=== PATIENT | male | born 1970 | race Caucasian/White ===

== ENCOUNTER 2019-02-27 13:08 | Emergency (ER) | payer MEDICARE, OTHER, SELFPAY ==
[2019-02-27 13:20] VITALS: BP 103/64; PULSE 68; RESP 16; TEMP 36.6; O2SAT 98; BMI 23.6
[2019-02-27 13:39] LABS: Appearance Urine UA CLEAR; Bacteria Urine None Seen; Bilirubin Urine UA NEGATIVE (NEGATIVE); Color Urine UA YELLOW; Glucose Urine UA NEGATIVE (Negative); Ketones Urine UA NEGATIVE (NEGATIVE); Leukocyte Esterase Urine UA NEGATIVE (NEGATIVE); Nitrite Urine UA NEGATIVE (Negative); Occult Blood Urine UA NEGATIVE (Negative); Protein Urine UA NEGATIVE (Negative); RBC Urine None Seen (0-5/HPF); Urobilinogen Urine UA 0.2 E.U./dL (0.2); WBC Urine None Seen (0-5/HPF)
[2019-02-27 13:45] LABS: Culture Indicated Urine Cult Not Indicated; Urine Comments Microscopic Normal
--- NOTE | 2019-02-27 13:48 | ED_ITS ---
HPI - Male Genitourinary <OTF Murphy - Last Filed: 02/27/19 22:19> General Chief complaint: Urogenital-Male Stated complaint: chylamidia needs antibiotics x2 days Time Seen by Provider: 02/27/19 13:18 Source: patient Mode of arrival: ambulatory Limitations: no limitations History of Present Illness HPI Narrative: 49-year-old healthy male, presents emergency department today complaining of right testicle pain and slight swelling that started 2 today ago. He is concern for STDs, as he reports unprotected sexual intercourse with a woman he did not know about 2 weeks ago. He denies any penile discharge, dysuria, abdominal pain, nausea, vomiting, chest pain, shortness of breath, or fevers. He states he does not want to be tested for HIV or hepatitis as [facility] He also reports that [place] was [place] over 12 hours yesterday and was concerned that this may have also contributed to the issue. Related Data Previous Rx's Medication Instructions Recorded scopolamine base [Transderm-Scop] 1 patch TD Q72H #2 patch 03/06/17 Allergies Allergy/AdvReac Type Severity Reaction Status Date / Time No Known Drug Allergies Allergy Unverified 12/22/17 18:30 Review of Systems <OTF Murphy - Last Filed: 02/27/19 22:19> Review of Systems Narrative: REVIEW OF SYSTEMS: GENERAL: Denies fever, chills, malaise, or wt. loss. HENT: No head trauma, sore throat, or dysphagia. EYES: No loss of vision, double vision, eye pain, or irritation. CARDIOVASCULAR: No chest pain, palpitations, or orthopnea. RESPIRATORY: No shortness of breath or cough. GASTROINTESTINAL: Denies abdominal pain. GENITOURINARY: Patient reports concern for STIs and testicular pain, see HPI PE No flank pain, urinary incontinence, hesitancy, frequency, or dysuria. MUSCULOSKELETAL: No pain, weakness, or trauma. INTEGUMENTARY: No rash, lesions, or pruritus. NEURO: No numbness, tingling, memory loss, confusion, or headaches. PSYCH: No behavior or mood changes. PFSH <OTF Murphy - Last Filed: 09/08/19 22:19> Medical History No significant medical problems (Acute) Social History Smoking Status: Never smoker Social History Smoking Status: Never smoker Exam <OTF Murphy - Last Filed: 02/27/19 22:19> Initial Vital Signs Initial Vital Signs: Vital Signs Temperature 97.8 F 02/27/19 13:20 Pulse Rate 68 02/27/19 13:20 Respiratory Rate 16 02/27/19 13:20 Blood Pressure 103/64 02/27/19 13:20 Pulse Oximetry 98 02/27/19 13:20 PHYSICAL EXAMINATION: GENERAL: Well groomed, alert, and cooperative. Answers questions promptly and appropriately. Vital signs noted. HENT: Normocephalic, atraumatic. EYES: Conjunctiva pink, sclera white, no periorbital swelling. RESPIRATORY: Normal respiratory rate, trachea midline, airway patent. No stridor, nasal flaring or accessory muscle use. s. GASTROINTESTINAL: Bowel sounds normoactive. Abdomen is soft and non-tender. No organomegaly, no palpable masses. : Penis circumcised without erythema or discharge. Scrotum without masses or tenderness. No lesions, rashes, ecchymoses, or erythema. During exam patient pointed to the skin between is to testicles of the part that was the most painful. No flank tenderness. MUSCULOSKELETAL: Normal gait and coordination. Equal tone and mass bilaterally. EXTREMITIES: CMS intact, no pedal edema. SKIN: Warm, dry, soft, appropriate color for ethnicity. No lesions, rashes, or w ounds. NEURO: Alert and Oriented X 3. Good coordination. No ataxia, or sensory deficits, or cognitive issues. PSYCH: Appropriate affect and mood. <Fay Foster DO - Last Filed: 02/28/19 07:36> Initial Vital Signs Initial Vital Signs: Vital Signs Temperature 97.8 F 02/27/19 13:20 Pulse Rate 68 02/27/19 13:20 Respiratory Rate 16 02/27/19 13:20 Blood Pressure 103/64 02/27/19 13:20 Pulse Oximetry 98 02/27/19 13:20 Course <OTF Murphy - Last Filed: 02/27/19 22:19> Course Course Narrative: Patient denied further testing for HIV or hepatitis as he states he can get this at the [facility]. Orders Ordered: ED Orders 02/27/19 13:25 Urine Chlamydia Gonorrhea PCR Stat Consultations Consultation #1: Patient staffed with Dr. Foster. Vital Signs Vital signs: Vital Signs - 8 hr 02/27/19 13:20 Temperature 97.8 F Pulse Rate 68 Respiratory Rate 16 Blood Pressure 103/64 Pulse Oximetry 98 <Fay Foster DO - Last Filed: 02/28/19 07:36> Orders Ordered: ED Orders 02/27/19 13:25 Urine Chlamydia Gonorrhea PCR Stat Vital Signs Vital signs: Vital Signs - 8 hr 02/27/19 13:20 Temperature 97.8 F Pulse Rate 68 Respiratory Rate 16 Blood Pressure 103/64 Pulse Oximetry 98 MDM - Male Genitourinary <OTF Murphy - Last Filed: 02/27/19 22:19> Medical Records Attestation: I reviewed the patient's medical records. Lab Data Attestation: I reviewed the patient's lab results. Labs: Lab Results 02/27/19 02/27/19 Range/Units 12:45 13:25 Urine Color Yellow Urine Appearance Clear Urine pH 5.0 (4.5-8.0) Ur Specific [place] 1.020 (1.000-1.035) Urine Protein Negative (Negative) Urine Glucose (UA) Negative (Negative) g/dL Urine Ketones Negative (NEGATIVE) Urine Occult Blood Negative (Negative) Urine Nitrate Negative (Negative) Urine Bilirubin Negative (NEGATIVE) Urine Urobilinogen 0.2 (0.2) E.U./dL Ur Leukocyte Esterase Negative (NEGATIVE) Urine RBC None seen (0-5/HPF) Urine WBC None seen (0-5/HPF) Urine Bacteria None seen (None) Ur Culture Indicated? Cult not indicated Micro UA Comment Microscopic normal Ur Chlamydia DNA (PCR) Not detected N gonorrhoeae DNA (PCR) Not detected MDM Narrative Medical decision making narrative: Unsure exact cause of patient's symptoms. Very low concern for epididymitis due to lack of pain at this time, lack of swelling, lack of erythema, lack of tenderness. Very low concern for STIs due to negative testing. No palpation of masses to suggest variceal or hydrocele or cancer. No concern for testicular torsion due to age, lack of tenderness on palpation, lack of discoloration, and lack of trauma. Very strict return precautions given and follow-up instructions discussed. <Fay Kristin, - Last Filed: 02/28/19 07:36> Lab Data Attestation: I reviewed the patient's lab results. Labs: Lab Results 02/27/19 02/27/19 Range/Units 12:45 13:25 Urine Color Yellow Urine Appearance Clear Urine pH 5.0 (4.5-8.0) Ur Specific [place] 1.020 (1.000-1.035) Urine Protein Negative (Negative) Urine Glucose (UA) Negative (Negative) g/dL Urine Ketones Negative (NEGATIVE) Urine Occult Blood Negative (Negative) Urine Nitrate Negative (Negative) Urine Bilirubin Negative (NEGATIVE) Urine Urobilinogen 0.2 (0.2) E.U./dL Ur Leukocyte Esterase Negative (NEGATIVE) Urine RBC None seen (0-5/HPF) Urine WBC None seen (0-5/HPF) Urine Bacteria None seen (None) Ur Culture Indicated? Cult not indicated Micro UA Comment Microscopic normal Ur Chlamydia DNA (PCR) Not detected N gonorrhoeae DNA (PCR) Not detected ECG Data Attestation: I personally reviewed and interpreted this ECG as follows: Prior ECG tracings: available for review Interpretation: 87 p.r. interval 1 60 q.8 hours [address] changes no T- wave inversions no sign of ischemia similar to previous EKG Discharge Plan Departure Patient Disposition: Home Clinical Impression: Pain in right testicle, Potential exposure to STD Discharge Date/Time: 02/27/19 15:45 Activity Restrictions/Additional Instructions: Thank you for entrusting me with your care today. As discussed, your test was negative for any infection. Please follow up with her primary care provider in the next week for re-evaluation. Return emergency department if he develops any worsening symptoms, chest pain, shortness of breath, syncope, high fevers. Prescriptions: No Action scopolamine base [Transderm-Scop] 1.5 MG patch 3 day 1 patch TD Q72H Qty: 2 RF: 0
[2019-02-27 15:09] LABS: Urine N gonorrhoeae NOT DETECTED
[2019-02-27 15:10] LABS: Urine Chlamydia NOT DETECTED
== END 2019-02-27 15:45 | disposition home or self-care (01) ==
PROVIDERS: Emergency Provider Nurse Practitioner
DX: N50.811 Right testicular pain (principal); Z20.2 Contact with and (suspected) exposure to infections with a predominantly sexual mode of transmission
CPT/HCPCS: 81001; 87491; 87591; 99282

== ENCOUNTER 2020-09-30 15:44 | Emergency (ER) | payer MEDICARE, OTHER, SELFPAY ==
[2020-09-30 16:07] VITALS: BP 131/82; PULSE 73; RESP 18; TEMP 36.5; O2SAT 98; BMI 25.8
--- NOTE | 2020-09-30 16:42 | ED_ITS ---
HPI - Wound/Laceration General Chief Complaint: Wound/Laceration Stated Complaint: left inner thight cut with skillsaw Time Seen by Provider: 09/30/20 15:54 Source: patient Mode of arrival: Family Vehicle Limitations: no limitations History of Present Illness HPI narrative: Patient complains of skill saw injury to the left thigh. Tetanus up-to-date. Denies any numbness tingling or weakness to the leg or foot. P atient is ambulatory. Bleeding controlled. Has a 5 cm laceration to the mid medial thigh. Related Data Previous Rx's Medication Instructions Recorded scopolamine base [Transderm-Scop] 1 patch TD Q72H #2 patch 03/06/17 cephalexin 500 mg PO QID #12 cap 09/30/20 Allergies Allergy/AdvReac Type Severity Reaction Status Date / Time No Known Drug Allergies Allergy Verified 09/30/20 16:05 Review of Systems Review of Systems Narrative: GENERAL: Denies chills, fatigue, malaise, fever, sweats. HEENT: Denies sinus pain, ear pain, sore throat RESPIRATORY: Denies dyspnea, cough CARDIOVASCULAR: Denies chest pain, palpitations GASTROINTESTINAL: Denies nausea, vomiting, abdominal pain : Denies dysuria, frequency, hematuria MUSCULOSKELETAL: denies muscle or bony pain SKIN: Denies rash, skin lesions, complains of laceration NEUROLOGIC: Denies weakness, numbness ROS Unobtainable: All systems reviewed & are unremarkable except as noted in HPI and below Patient History Medical History No significant medical problems Social History Smoking Status: Never smoker Smoking Status: Never smoker alcohol intake frequency: a few times a month Substance Use Type: does not use Exam Narrative Exam Narrative: GENERAL: in no distress, not toxic not dyspneic HEAD: Normocephalic. EXTREMITIES: No gross deformities. Examination left thigh. There is a 5 cm laceration/linear at the mid medial thigh. Based visualized. Subcutaneous/fat seen. No muscle or tendon injury seen no bone injury seen. No foreign body seen. Bloodless field. Foot warm soft and pink with strong pedal pulse with light touch intact to foot and toes. Able to fully flex and extend at the knee without any difficulty. As well as at the hip. NEURO: AOx4. SKIN: Warm and dry PSYCH: Not anxious, is cooperative Initial Vital Signs Initial Vital Signs: Vital Signs Temperature 97.7 F 09/30/20 16:07 Pulse Rate 73 09/30/20 16:07 Respiratory Rate 18 09/30/20 16:07 Blood Pressure 131/82 09/30/20 16:07 Pulse Oximetry 98 09/30/20 16:07 Procedures Laceration Repair Laceration 1: Site: lower extremity Side (If applicable): left Size (cm): 5 Description: linear Depth: simple, single layer Local Anesthetic: lidocaine 1% and with epi Amount of anesthesia used (mL): 6 Pre-repair: wound explored, irrigated extensively and deep structures intact Skin layer closed with: nylon Size (cm): 3-0 Number of sutures: 10 Course Course Course Narrative: No new issues during course of stay Orders Ordered: Discontinued Medications Bacitracin (Bacitracin Oint 0.9 Gm Pckt) 1 applic TOP NOW ONE Stop: 09/30/20 16:46 Last Admin: 09/30/20 16:50 Dose: Not Given Documented by: JASON Cephalexin HCl (Cephalexin 250 Mg Capsule) 500 mg PO NOW ONE Stop: 09/30/20 16:00 Last Admin: 09/30/20 16:43 Dose: 500 mg Documented by: JASON Neomycin/Polymyxin/Bacitracin (Neomycin/Polymyxin/Bacitra Ud Oint) 0.9 each TOP NOW ONE Stop: 09/30/20 16:49 Last Admin: 09/30/20 16:51 Dose: 0.9 each Documented by: JASON Reevaluation(s) Reevaluation #1: No bleeding at time of discharge. No neurovascular complaints. No deficits. Patient agrees with treatment plan and discharged home Vital Signs Vital signs: Vital Signs - 8 hr 09/30/20 16:07 Temperature 97.7 F Pulse Rate 73 Respiratory Rate 18 Blood Pressure 131/82 Pulse Oximetry 98 MDM - Wound/Laceration Differential Diagnosis Differential diagnosis: Likely laceration MDM Narrative Medical decision making narrative: Appropriate for discharge home. No labs or imaging indicated. Base of laceration visualized. No concern for bony injury at this time. No muscle injury or tendon injury seen. Neurovascularly intact. Discharge Plan Departure Patient Disposition: Home Clinical Impression: Laceration of left thigh without complication Qualifiers: Encounter type: initial encounter Qualified Code(s): S71.112A - Laceration without foreign body, left thigh, initial encounter Instructions: How to Care for a Laceration After Repair, DI for Laceration Repair Activity Restrictions/Additional Instructions: Change dressing twice a day with warm soap and water and then apply thin layer of topical antibiotic. May shower but no submersion underwater of the wound. Ten stitches to be removed in 10 days. Return if worsening questions or concerns. May see family doctor or urgent care or return here for removal stitches. Prescriptions: New cephalexin 500 mg capsule 500 mg PO QID Qty: 12 RF: 0 No Action scopolamine base [Transderm-Scop] 1.5 MG patch 3 day 1 patch TD Q72H Qty: 2 RF: 0
[2020-09-30] MEDS: cephALEXin 250 MG CAPSULE 500 MG PO (16:43)
[2020-09-30] MEDS: NEOMYCIN/POLYMYXIN/BACITRA UD OINT 0.9 EACH TOP (16:51)
== END 2020-09-30 17:03 | disposition home or self-care (01) ==
PROVIDERS: Emergency Provider Emergency Medicine
DX: S71.112A Laceration without foreign body, left thigh, initial encounter (principal); W29.3XXA Contact with powered garden and outdoor hand tools and machinery, initial encounter
CPT/HCPCS: 12002; 99283

== ENCOUNTER 2025-01-12 15:15 | Emergency (ER) | payer MEDICARE, OTHER, SELFPAY ==
[2025-01-12 15:22] VITALS: BP 108/71; PULSE 68; RESP 16; TEMP 37.1; O2SAT 98; BMI 25.1
--- NOTE | 2025-01-12 16:22 | ED.NAVMDI ---
HPI - Nausea/Vomiting/Diarrhea <Nasrin Cisneros PA-C - Last Filed: 01/12/25 19:35> General Chief complaint: Nausea/Vomiting/Diarrhea Stated complaint: thinks had laxatives in coffee Time Seen by Provider: 01/12/25 15:54 Source: patient Mode of arrival: Ambulatory History of Present Illness HPI Narrative: Mr. Vance is a pleasant 54-year-old male with no reported past medical history who presents to the emergency department for diarrhea since 10:00 a.m. yesterday. Patient states that he was at a neighbor's house, helping her. She gave him coffee and was quite insistent about him drinking the coffee. Ever since having this coffee he has had persistent watery/brown diarrhea and he is concerned that she might have given him a laxative. He went to the walk-in clinic but was sent to the ER for labs and fluids. Patient denies any abdominal pain, fevers, chills, nausea, vomiting, prior abdominal surgeries, dysuria, hematuria. He is still producing urine. His stomach is grumbling extensively but he has not having any pain. Related Data Allergies Allergy/AdvReac Type Severity Reaction Status Date / Time No Known Drug Allergies Allergy Verified 01/12/25 14:43 Review of Systems <Nasrin Cisneros PA-C - Last Filed: 01/12/25 19:35> Review of Systems ROS Unobtainable: All systems reviewed & are unremarkable except as noted in HPI and below Patient History <Nasrin Cisneros PA-C - Last Filed: 01/12/25 19:35> Medical History (Updated 01/12/25 @ 18:54 by Nasrin Cisneros PA-C) No significant medical problems Social History Smoking Status: Former smoker Smoking Status: Former smoker alcohol intake frequency: a few times a month Exam <Nasrin Cisneros PA-C - Last Filed: 01/12/25 19:35> Narrative Exam Narrative: GENERAL: 54 year old patient appears stated age. Well-developed patient, in no acute distress. HEAD: Atraumatic. Normocephalic. EYES: No scleral icterus. No injection or drainage. NECK: Trachea midline. Cervical ROM intact. CARDIOVASCULAR: Regular rate and rhythm. RESPIRATORY: ?Nonlabored respirations. ?Speaking in clear, full sentences. ?Clear to auscultation. Breath sounds equal bilaterally. No wheezes, rales, or rhonchi. ? GASTROINTESTINAL: Abdomen soft, non-tender, nondistended. Hyperactive BS. EXTREMITIES: No edema or joint tenderness. BACK: No CVA tenderness. NEURO: AOx3. ?Clear speech. ?Moves all 4 extremities appropriately. SKIN: No rash or erythema of visible areas Initial Vital Signs Initial Vital Signs: Vital Signs Temperature 98.7 F 01/12/25 15:22 Pulse Rate 68 01/12/25 15:22 Respiratory Rate 16 01/12/25 15:22 Blood Pressure 108/71 01/12/25 15:22 Pulse Oximetry 98 01/12/25 15:22 Oxygen Delivery Method Room Air 01/12/25 15:22 <Miriam Miranda MD - Last Filed: 01/14/25 19:14> Initial Vital Signs Initial Vital Signs: Vital Signs Temperature 98.7 F 01/12/25 15:22 Pulse Rate 68 01/12/25 15:22 Respiratory Rate 16 01/12/25 15:22 Blood Pressure 108/71 01/12/25 15:22 Pulse Oximetry 98 01/12/25 15:22 Oxygen Delivery Method Room Air 01/12/25 15:22 Course <Nasrin Cisneros PA-C - Last Filed: 01/12/25 19:35> Orders Ordered: Discontinued Medications Sodium Chloride (Normal Saline 0.9%) 1,000 mls @ 1,000 mls/hr IV BOLUS ONE Stop: 01/12/25 17:31 Last Infusion: 01/12/25 17:58 Dose: Infused Documented By: Admin: 01/12/25 17:00 Dose: 1,000 mls/hr Documented By: RB Loperamide HCl (Loperamide 2 Mg Capsule) 4 mg PO NOW ONE Stop: 01/12/25 19:27 Last Admin: 01/12/25 19:33 Dose: 4 mg Documented By: RB Ondansetron HCl (Ondansetron 4 Mg/2 Ml Inj) 4 mg IV NOW PRN PRN Reason: Nausea And Vomiting Ondansetron HCl (Ondansetron 4 Mg Odt) 4 mg PO NOW PRN PRN Reason: Nausea And Vomiting Vital Signs Vital signs: Vital Signs - 8 hr 01/12/25 15:22 01/12/25 19:07 Temperature 98.7 F 98.2 F Pulse Rate 68 56 L Respiratory Rate 16 18 Blood Pressure 108/71 150/76 H Pulse Oximetry 98 100 Oxygen Delivery Method Room Air Room Air <Miriam Miranda MD - Last Filed: 01/14/25 19:14> Orders Ordered: Discontinued Medications Sodium Chloride (Normal Saline 0.9%) 1,000 mls @ 1,000 mls/hr IV BOLUS ONE Stop: 01/12/25 17:31 Last Infusion: 01/12/25 17:58 Dose: Infused Documented By: Admin: 01/12/25 17:00 Dose: 1,000 mls/hr Documented By: RB Loperamide HCl (Loperamide 2 Mg Capsule) 4 mg PO NOW ONE Stop: 01/12/25 19:27 Last Admin: 01/12/25 19:33 Dose: 4 mg Documented By: RB Ondansetron HCl (Ondansetron 4 Mg/2 Ml Inj) 4 mg IV NOW PRN PRN Reason: Nausea And Vomiting Ondansetron HCl (Ondansetron 4 Mg Odt) 4 mg PO NOW PRN PRN Reason: Nausea And Vomiting Vital Signs Vital signs: Vital Signs - 8 hr 01/12/25 15:22 01/12/25 19:07 Temperature 98.7 F 98.2 F Pulse Rate 68 56 L Respiratory Rate 16 18 Blood Pressure 108/71 150/76 H Pulse Oximetry 98 100 Oxygen Delivery Method Room Air Room Air MDM - Nausea/Vomiting/Diarrhea <Nasrin Cisneros PA-C - Last Filed: 01/12/25 19:35> Medical Records Attestation: I reviewed the patient's medical records. Lab Data 01/12/25 16:20 01/12/25 16:20 Labs: Lab Results 01/12/25 01/12/25 Range/Units 15:50 16:20 WBC 4.6 (4.5-11.0) X10^3/uL RBC 4.72 (4.5-5.9) X10^6/uL Hgb 14.7 (13.5-17.5) g/dL Hct 42.0 (41-53) % MCV 88.9 (80-100) fL MCH 31.1 (26-34) PG MCHC 35.0 (30-36) % RDW 13.0 (11.6-14.8) % Plt Count 186 (150-400) X10^3/uL Neut % (Auto) 48.8 L (50-75) % Lymph % (Auto) 40.1 H (25-40) % [place] % (Auto) 8.1 (3-14) % Eos % (Auto) 1.8 L (2-4) % Baso % (Auto) 1.2 (0-2) % Neut # (Auto) 2300 (8366-6185) /uL Lymph # (Auto) 1800 (3765-6992) /uL [place] # (Auto) 400 (0-900) /uL Eos # (Auto) 100 (0-450) /uL Baso # (Auto) 100 (0-100) /uL Sodium 138 (137-145) mmol/L Potassium 4.2 (3.4-5.1) mmol/L Chloride 106 (98-107) mmol/L Carbon Dioxide 29 (22-32) mmol/L BUN 19 (9-20) mg/dL Creatinine 1.10 (0.66-1.25) mg/dL Estimated GFR > 60 (>60) mL/min BUN/Creatinine Ratio 17.3 (6-22) Glucose 109 H (70-99) mg/dL Calcium 9.0 (8.4-10.2) mg/dL Magnesium 2.3 (1.6-2.3) mg/dL Total Bilirubin 0.7 (0.2-1.3) mg/dL AST 32 (17-59) IU/L ALT 20 (<50) IU/L Alkaline Phosphatase 49 (38-126) U/L Total Protein 6.9 (6.3-8.2) g/dL Albumin 4.3 (3.5-5.0) g/dL Globulin 2.6 (1.7-4.1) g/dL Albumin/Globulin Ratio 1.7 (1.0-2.8) Lipase 95 (23-300) U/L Stl C. cayetanensis PCR Not detected (Not Detect) Stool Rotavirus (PCR) Not detected (Not Detect) Stool Adenovirus (PCR) Not detected (Not Detect) Stool Astrovirus (PCR) Not detected (Not Detect) Stool Cryptosporidium PCR Not detected (Not Detect) Stl E.coli Shiga Tox PCR Not detected (Not Detect) St Sh/Enteroin Ecoli PCR Not detected (Not Detect) Stl Enterotoxigenic E PCR Not detected (Not Detect) Stool EPEC (PCR) Not detected (Not Detect) Stl E. histolytica PCR Not detected (Not Detect) Stool Giardia Lamblia PCR Not detected (Not Detect) Stool Sapovirus (PCR) Not detected (Not Detect) Stl P. shigelloides PCR Not detected (Not Detect) St Y.enterocolitica PCR Not detected (Not Detect) Stool Vibrio (PCR) Not detected (Not Detect) Stl Vibrio cholerae PCR Not detected (Not Detect) Stl Enteroaggr Ecoli PCR Not detected (Not Detect) Stl Norovirus GI/GII PCR Not detected (Not Detect) Campylobacter (PCR) Not detected (Not Detect) C. difficile Tox (PCR) Not detected (Not Detect) Salmonella (PCR) Not detected (Not Detect) MDM Narrative Medical decision making narrative: 54-year-old male with no reported past medical history who presents to the emergency department for diarrhea since 10:00 a.m. yesterday. Differential diagnosis includes but is not limited to gastroenteritis, unintentional laxative use, dehydration, electrolyte abnormality, colitis, etc. On exam patient is in no acute distress, nontoxic-appearing, all vital signs within normal limits. Abdomen is soft and nontender. He is having nonbloody, nonpainful diarrhea with no nausea or vomiting. We will obtain CBC, CMP, lipase, GI panel, treat with IV fluids. Labs reveal normal WBC count 4.6, hemoglobin 14.7 hematocrit 42.0. Platelets 186. Normal electrolytes with a sodium of 138, potassium 4.2, magnesium of 2.3. Normal LFTs. Normal lipase 95. BUN of 19 creatinine of 1.10, no comparisons available. Stool culture still pending. 1850: Patient resting comfortably in the ED. Updated patient on imaging results. He is aware we are still waiting on GI panel at this time in his agreeable. 5: Discussed with the patient that if you would like to be discharged prior to GI panel result, he will be called with any positive results. However patient declines and would like to wait in the ED until results. 1933: GI panel resulted and is negative. Because patient is not having pain, fevers, bloody stool, mucus stool, and the history is concerning for potential accidental laxative use, I will treat him with 4 mg of loperamide in the ED to help reduce the frequency of his bowel movements. Recommended rest, hydration, brat diet, continued use of loperamide if needed. However I also stressed strict ED return precautions if he were to develop any pain, fevers bloody stool or other concerns. Patient verbalized understanding of all information is agreeable with the plan. He is stable for discharge home. <Miriam Miranda MD - Last Filed: 01/14/25 19:14> Lab Data Labs: Lab Results 01/12/25 01/12/25 Range/Units 15:50 16:20 WBC 4.6 (4.5-11.0) X10^3/uL RBC 4.72 (4.5-5.9) X10^6/uL Hgb 14.7 (13.5-17.5) g/dL Hct 42.0 (41-53) % MCV 88.9 (80-100) fL MCH 31.1 (26-34) PG MCHC 35.0 (30-36) % RDW 13.0 (11.6-14.8) % Plt Count 186 (150-400) X10^3/uL Neut % (Auto) 48.8 L (50-75) % Lymph % (Auto) 40.1 H (25-40) % [place] % (Auto) 8.1 (3-14) % Eos % (Auto) 1.8 L (2-4) % Baso % (Auto) 1.2 (0-2) % Neut # (Auto) 2300 (9047-8489) /uL Lymph # (Auto) 1800 (1944-7050) /uL [place] # (Auto) 400 (0-900) /uL Eos # (Auto) 100 (0-450) /uL Baso # (Auto) 100 (0-100) /uL Sodium 138 (137-145) mmol/L Potassium 4.2 (3.4-5.1) mmol/L Chloride 106 (98-107) mmol/L Carbon Dioxide 29 (22-32) mmol/L BUN 19 (9-20) mg/dL Creatinine 1.10 (0.66-1.25) mg/dL Estimated GFR > 60 (>60) mL/min BUN/Creatinine Ratio 17.3 (6-22) Glucose 109 H (70-99) mg/dL Calcium 9.0 (8.4-10.2) mg/dL Magnesium 2.3 (1.6-2.3) mg/dL Total Bilirubin 0.7 (0.2-1.3) mg/dL AST 32 (17-59) IU/L ALT 20 (<50) IU/L Alkaline Phosphatase 49 (38-126) U/L Total Protein 6.9 (6.3-8.2) g/dL Albumin 4.3 (3.5-5.0) g/dL Globulin 2.6 (1.7-4.1) g/dL Albumin/Globulin Ratio 1.7 (1.0-2.8) Lipase 95 (23-300) U/L Stl C. cayetanensis PCR Not detected (Not Detect) Stool Rotavirus (PCR) Not detected (Not Detect) Stool Adenovirus (PCR) Not detected (Not Detect) Stool Astrovirus (PCR) Not detected (Not Detect) Stool Cryptosporidium PCR Not detected (Not Detect) Stl E.coli Shiga Tox PCR Not detected (Not Detect) St Sh/Enteroin Ecoli PCR Not detected (Not Detect) Stl Enterotoxigenic E PCR Not detected (Not Detect) Stool EPEC (PCR) Not detected (Not Detect) Stl E. histolytica PCR Not detected (Not Detect) Stool Giardia Lamblia PCR Not detected (Not Detect) Stool Sapovirus (PCR) Not detected (Not Detect) Stl P. shigelloides PCR Not detected (Not Detect) St Y.enterocolitica PCR Not detected (Not Detect) Stool Vibrio (PCR) Not detected (Not Detect) Stl Vibrio cholerae PCR Not detected (Not Detect) Stl Enteroaggr Ecoli PCR Not detected (Not Detect) Stl Norovirus GI/GII PCR Not detected (Not Detect) Campylobacter (PCR) Not detected (Not Detect) C. difficile Tox (PCR) Not detected (Not Detect) Salmonella (PCR) Not detected (Not Detect) Discharge Plan Departure Patient Disposition: Home Clinical Impression: Diarrhea Qualifiers: Diarrhea type: unspecified type Qualified Code(s): R19.7 - Diarrhea, unspecified Instructions: DI for Diarrhea and Traveler's Diarrhea -- Adult, Loperamide (By mouth) Activity Restrictions/Additional Instructions: Dear Mr. Vance, Thank you for coming to the emergency department. Today you were evaluated for diarrhea after possibly being exposed to laxatives. You were treated with a 4 mg dose of loperamide/Imodium which is a medicine that can help decrease diarrhea. This can be purchased [id number] and you continue using 2 mg doses if needed for persistent diarrhea. Please rest, hydrate with water, electrolyte beverages such as Gatorade or Pedialyte, and eat a bland diet such as the brat diet (bananas, rice, applesauce, toast). Please return to the emergency department immediately if you develop fevers, bloody stool, abdominal pain, persistent vomiting or any other concerns. Please follow up with your primary care doctor within the next 2-3 days for ER follow-up. (If you do not have a PCP you can call [phone]. ?to schedule an appointment with an [facility] Primary Care Provider) IF YOU DEVELOP ANY NEW OR WORSENING SYMPTOMS, RETURN TO THE ER! Please read the attached instructions, they highlight more specific treatments and interventions for you at home. Thank you for letting me participate in your care, Nasrin Cisneros PA-C Referrals: Miscellaneous,Doctor[facility] [Primary Care Provider, Medical] Stand Alone Forms: Patient Portal/API ED Sign-out <Miriam Miranda MD - Last Filed: 01/14/25 19:14> [facility] Attestation: I was immediately available in the department for consultation throughout this patient's visit. Miriam Miranda MD
[2025-01-12 16:37] LABS: Add Manual Diff / Slide Review NO; Hematocrit 42.0 % (41-53); Hemoglobin 14.7 g/dL (13.5-17.5); Lymphocytes Absolute Auto 1800 /uL (1100-4500); Mean Corpuscular HGB Conc 35.0 % (30-36); Mean Corpuscular Hemoglobin 31.1 PG (26-34); Mean Corpuscular Volume 88.9 fL (80-100); Platelet Count 186 X10^3/uL (150-400)
[2025-01-12] MEDS: SODIUM CHLORIDE 0.9% 1,000 ML 1000 ML IV (17:00)
[2025-01-12 17:08] LABS: Alanine Aminotransferase 20 IU/L (<50); Albumin 4.3 g/dL (3.5-5.0); Albumin Globulin Ratio 1.7 (1.0-2.8); Alkaline Phosphatase 49 U/L (38-126); Blood Urea Nitrogen 19 mg/dL (9-20); Calcium 9.0 mg/dL (8.4-10.2); Carbon Dioxide 29 mmol/L (22-32); Chloride 106 mmol/L (98-107); Estimated Glomerular Filt Rate > 60 mL/min (>60); Globulin 2.6 g/dL (1.7-4.1); Glucose 109 mg/dL (70-99); HEMOLYSIS < 15 (0-50); Lipase 95 U/L (23-300); Magnesium 2.3 mg/dL (1.6-2.3); Potassium 4.2 mmol/L (3.4-5.1); Sodium 138 mmol/L (137-145); Total Protein 6.9 g/dL (6.3-8.2)
[2025-01-12 19:07] VITALS: BP 150/76; PULSE 56; RESP 18; TEMP 36.8; O2SAT 100
[2025-01-12 19:20] LABS: Clostridium difficile toxin AB Not Detected (Not Detect); Enteroaggregative E.coli Not Detected (Not Detect); Enteropathogenic E.coli Not Detected (Not Detect); Enterotoxigenic E.coli It/st Not Detected (Not Detect); Plesiomonsa shigelloides Not Detected (Not Detect); Shiga-like toxin-prod E.coli Not Detected (Not Detect)
[2025-01-12] MEDS: LOPERAMIDE 2 MG CAPSULE 4 MG PO (19:33)
== END 2025-01-12 19:37 | disposition home or self-care (01) ==
PROVIDERS: Emergency Provider Physician Assistant
DX: R19.7 Diarrhea, unspecified (principal)
CPT/HCPCS: 36415; 80053; 83690; 83735; 85025; 87507; 96360; 99284